=== PATIENT | female | born 1955 | race Caucasian/White ===

== ENCOUNTER 2019-02-03 10:11 | Inpatient (IN) | payer MEDICARE, OTHER ==
[~2019-02-03] VITALS: Ht 160 cm; Wt 75.0 kg
[2019-02-03] VITALS (16 sets, daily range): BP systolic 115–137; BP diastolic 53–100
[2019-02-03] MEDS ORDERED: normal saline 1000ML IV soln IVB ONE (10:20)
[2019-02-03] MEDS ORDERED: morphine 4 MG/ML inj SYRINge IV PRN ×4 (10:20→17:10)
[2019-02-03] MEDS ORDERED: ondansetron/PF 4mg/2ml inj IV ONE (10:20)
[2019-02-03 10:58] LABS: BASOPHILS # (AUTO) 0.1 X10'3 (0-0.2); BASOPHILS % (AUTO) 0.7 % (0-1); EOSINOPHILS % (AUTO) 0.3 % (0-6); HEMATOCRIT 36.9 % (35.0-45.0); HEMOGLOBIN 12.3 g/dl (12.0-16.0); LYMPHOCYTES # (AUTO) 2.3 X10'3 (1.1-4.8); LYMPHOCYTES % (AUTO) 18.5 % (21-51); MEAN CORPUSCULAR HEMOGLOBIN 28.2 PG (27.0-31.0); MEAN CORPUSCULAR HGB CONC 33.5 g/dL (33.0-36.5); MEAN CORPUSCULAR VOLUME 84.3 FL (78-98); MEAN PLATELET VOLUME 9.6 FL (7.4-10.4); MONOCYTES # (AUTO) 1.4 X10'3 (0-0.9); MONOCYTES % (AUTO) 10.9 % (2-12); NEUTROPHILS # (AUTO) 8.7 X10'3 (1.8-7.7); NEUTROPHILS % (AUTO) 69.6 % (42-75); PLATELET COUNT 263 X10'3 (140-440); RED BLOOD COUNT 4.38 X10'6 (4.20-5.60); RED CELL DISTRIBUTION WIDTH 12.5 % (11.5-14.5); WHITE BLOOD COUNT 12.5 X10'3 (4.5-11.0)
[2019-02-03 11:00] LABS: CLARITY,URINE SLIGHTLY CLOUDY (Clear); COLOR,URINE STRAW (Yellow); GLUCOSE, URINE NEGATIVE (Neg); KETONES,URINE 40 mg/dl (Neg); LEUKOCYTE ESTERASE ,URINE NEGATIVE (Neg); NITRITES, URINE NEGATIVE (Neg); OCCULT BLOOD,URINE NEGATIVE (Neg); PROTEIN,URINE NEGATIVE (Neg); UROBILINOGEN,URINE 0.2 E.U/dL (0.2-1.0)
[2019-02-03 11:05] LABS: UA COLLECTION TYPE VOIDED
[2019-02-03 11:12] LABS: ALANINE AMINOTRANSFERASE 15 U/L (12-78); ALBUMIN 3.4 G/DL (3.4-5.0); ALBUMIN/GLOBULIN RATIO 0.8 (1.1-1.5); ALKALINE PHOSPHATASE 86 IU/L (46-116); ANION GAP 12 (8-16); ASPARTATE AMINO TRANSFERASE 17 U/L (10-37); BILIRUBIN,TOTAL 0.4 MG/DL (0.1-1.0); BLOOD UREA NITROGEN 9 MG/DL (7-18); BUN/CREATININE RATIO 12.3 (6.6-38.0); CALCIUM 8.4 MG/DL (8.5-10.1); CHLORIDE 105 MMOL/L (99-107); CREATININE 0.73 MG/DL (0.40-0.90); GLUCOSE 103 MG/DL (70-104); POTASSIUM 3.5 MMOL/L (3.5-5.1); SODIUM 139 MMOL/L (135-145); TOTAL CARBON DIOXIDE 21.6 MMOL/L (24-32); TOTAL PROTEIN 7.7 G/DL (6.4-8.2); eGFR 80 ML/MIN
[2019-02-03 11:16] LABS: PARTIAL THROMBOPLASTIN TIME 29 SECONDS (22-32); PROTHROMBIN TIME 10.1 SECONDS (9.0-12.0)
[2019-02-03 11:20] LABS: SQUAMOUS EPITHELIAL CELL,UR MANY /LPF (FEW)
[2019-02-03 11:22] LABS: BACTERIA,URINE 2+ /HPF (Neg); MUCUS STRANDS NONE SEEN /LPF (Neg); RBC,URINE 0-2 /HPF (0-2); WBC,URINE 0-4 /HPF (0-4)
[2019-02-03] MEDS ORDERED: mag hydrox/Alum hydrox/simeth 30ml oral suspension PO PRN (12:00)
[2019-02-03] MEDS ORDERED: magnesium 4gm in 100ml NS 100 ML IV PRN (12:00)
[2019-02-03] MEDS ORDERED: potassium Cl 40MEQ/NS 500ml 500 ML IV PRN ×2 (12:00)
[2019-02-03] MEDS ORDERED: potassium Cl 20 mEq SR tablet PO PRN ×2 (12:00)
[2019-02-03] MEDS ORDERED: ondansetron/PF 4mg/2ml inj IV PRN ×2 (12:00→17:10)
[2019-02-03] MEDS ORDERED: magnesium 2GM in 50ml NS 50 ML IV PRN (12:00)
[2019-02-03] MEDS ORDERED: magnesium hydroxide 30ml (MOM) UD suspension PO PRN (12:00)
[2019-02-03] MEDS ORDERED: LOSA50TA64 PO (12:18)
[2019-02-03] MEDS ORDERED: METO-384 PO (12:18)
[2019-02-03] MEDS ORDERED: CHOL10002 PO (12:18)
[2019-02-03] MEDS ORDERED: EZET10TA14 PO (12:18)
[2019-02-03] MEDS ORDERED: VITA1TAB20 PO (12:18)
[2019-02-03] MEDS ORDERED: ROSU10TA2 PO (12:18)
[2019-02-03] MEDS ORDERED: ALBU18HF2 INH (12:18)
[2019-02-03] MEDS ORDERED: ESTR1.25 PO (12:18)
[2019-02-03] MEDS ORDERED: hydrALAZINE 20mg/ml inj. IV PRN ×2 (12:50→17:10)
[2019-02-03] MEDS ORDERED: ipratropium/albuterol 3ml nebule NEB PRN (13:05)
[2019-02-03] MEDS: morphine 2 MG/ML inj. syringe IV PRN ×3 (13:26→20:28)
--- NOTE | 2019-02-03 14:14 | NUR ---
Received report from DORIAN Denton. Awaiting patient.
--- NOTE | 2019-02-03 14:48 | NUR ---
Patient arrived to floor. VSS. c/o pain. paged MD for orders.
[2019-02-03] MEDS ORDERED: morphine 2 MG/ML inj. syringe IV PRN (15:05)
[2019-02-03] MEDS ORDERED: BUPIVAcaine/PF 2.5mg/ml (0.25%) 10ml vial ONE (16:43)
--- NOTE | 2019-02-03 16:57 | NUR ---
Report called to Henny customs agent.
[2019-02-03] MEDS ORDERED: ringers solution, lacted 1,000 ML IV SCH (17:08)
[2019-02-03] MEDS ORDERED: labetalol 20mg/4ml (5mg/ml) syringe IV PRN (17:10)
[2019-02-03] MEDS ORDERED: fentaNYL/PF 50MCG/1 ML 2ML syringe IV PRN ×2 (17:10)
[2019-02-03] MEDS ORDERED: sevoflurane 250ml liquid IH ONE (17:43)
[2019-02-03] MEDS ORDERED: neostigmine methylsulfate 1 MG/ML 10ml vial ONE (17:43)
[2019-02-03] MEDS ORDERED: propofol inj 20 ML IV ONE (17:45)
[2019-02-03] MEDS ORDERED: LIDOcaine 2% (20mg/ml) 5ml vial ONE (17:45)
[2019-02-03] MEDS ORDERED: morphine 10mg/ml inj. ONE (17:45)
[2019-02-03] MEDS ORDERED: midazolam 2 mg/2 ml injection ONE (17:45)
[2019-02-03] MEDS ORDERED: ondansetron/PF 4mg/2ml inj ONE (17:46)
[2019-02-03] MEDS ORDERED: glycopyrrolate 0.2mg/ml inj ONE (17:46)
[2019-02-03] MEDS ORDERED: dexamethasone sod phosphate 4mg/ml inj. ONE (17:46)
[2019-02-03] MEDS ORDERED: rocuronium 10mg/ml inj IV ONE (17:47)
[2019-02-03] MEDS ORDERED: labetalol 20mg/4ml (5mg/ml) syringe IV ONE (17:55)
[2019-02-03] MEDS ORDERED: cefotetan 2gm/isosm dext IVPB 50 ML IV ONE (18:10)
--- NOTE | 2019-02-03 18:32 | NUR ---
Problems reprioritized. Patient report given, questions answered & plan of care reviewed with DORIAN Swanson.
--- NOTE | 2019-02-03 18:50 | NUR ---
Received from OR via bed, accompanied by Anesthesiologist. Report received. Initial physical assessment done and recorded.
--- NOTE | 2019-02-03 20:00 | NUR ---
Discharge criteria met, report to receiving floor. Transferred to room in stable condition.
--- NOTE | 2019-02-03 20:20 | NUR ---
Received report from PACU. PT arrived on the unit at 2019 with VSS. LR running at 100 ml/hr. Pt sleepy from anesthesia. Abdomen checked, [address], CDI. Pt shows no signs of distress, will continue to monitor.
[2019-02-04 00:30] VITALS: BP 119/52
[2019-02-04 05:42] LABS: BASOPHILS % (AUTO) 0.1 % (0-1); EOSINOPHILS % (AUTO) 0 % (0-6); HEMATOCRIT 32.2 % (35.0-45.0); LYMPHOCYTES # (AUTO) 0.8 X10'3 (1.1-4.8); LYMPHOCYTES % (AUTO) 5.8 % (21-51); MEAN CORPUSCULAR HEMOGLOBIN 28.6 PG (27.0-31.0); MEAN CORPUSCULAR HGB CONC 34.1 g/dL (33.0-36.5); MEAN CORPUSCULAR VOLUME 84.1 FL (78-98); MEAN PLATELET VOLUME 9.5 FL (7.4-10.4); MONOCYTES # (AUTO) 1.5 X10'3 (0-0.9); MONOCYTES % (AUTO) 11.3 % (2-12); NEUTROPHILS # (AUTO) 11.4 X10'3 (1.8-7.7); NEUTROPHILS % (AUTO) 82.8 % (42-75); PLATELET COUNT 218 X10'3 (140-440); RED BLOOD COUNT 3.83 X10'6 (4.20-5.60); RED CELL DISTRIBUTION WIDTH 12.9 % (11.5-14.5); WHITE BLOOD COUNT 13.7 X10'3 (4.5-11.0)
[2019-02-04 06:04] LABS: ALANINE AMINOTRANSFERASE 36 U/L (12-78); ALBUMIN 2.6 G/DL (3.4-5.0); ALBUMIN/GLOBULIN RATIO 0.7 (1.1-1.5); ALKALINE PHOSPHATASE 66 IU/L (46-116); ANION GAP 9 (8-16); ASPARTATE AMINO TRANSFERASE 41 U/L (10-37); BILIRUBIN,TOTAL 0.4 MG/DL (0.1-1.0); BLOOD UREA NITROGEN 10 MG/DL (7-18); BUN/CREATININE RATIO 11.6 (6.6-38.0); CALCIUM 7.8 MG/DL (8.5-10.1); CHLORIDE 104 MMOL/L (99-107); CHOL/HDL RATIO 1.6 (0.00-4.99); CHOLESTEROL 128 MG/DL (0-200); CREATININE 0.86 MG/DL (0.40-0.90); GLUCOSE 171 MG/DL (70-104); HDL CHOLESTEROL 81 MG/DL (35-60); LDL CHOLESTEROL 38 MG/DL (50-100); MAGNESIUM 1.6 MG/DL (1.5-2.4); POTASSIUM 3.7 MMOL/L (3.5-5.1); SODIUM 136 MMOL/L (135-145); TOTAL CARBON DIOXIDE 22.8 MMOL/L (24-32); TOTAL PROTEIN 6.5 G/DL (6.4-8.2); TRIGLYCERIDES 53 MG/DL (20-135); eGFR 66 ML/MIN
--- NOTE | 2019-02-04 06:06 | NUR ---
Problems reprioritized. Patient report given, questions answered & plan of care reviewed with Irene ALARCON.
[2019-02-04 07:35] VITALS: BP 138/59
[2019-02-04] MEDS ORDERED: CefTRIAXone/D5W-Rocephin 1gm 50 ML IV SCH (08:00)
[2019-02-04] MEDS: K and/or MAG REPLACEMENT MC SCH (08:00)
[2019-02-04] MEDS: enoxaparin 40mg/0.4ml syringe SQ SCH (09:18)
[2019-02-04 11:44] VITALS: BP 129/55
[2019-02-04] MEDS: HYDROmorphone 1 mg/ml syringe IV PRN ×4 (12:02→21:25)
[2019-02-04] MEDS ORDERED: cefepime 2gm inj IV SCH (16:00)
[2019-02-04] MEDS: cefepime 2g/NS 100ml ADVANTAGE 100 ML IV SCH (16:31)
--- NOTE | 2019-02-04 18:48 | NUR ---
Patient in room [facility]. I have received report from Irene ALARCON and had the opportunity to ask questions and assume patient care. Pt sitting up on the edge of the bed working on her clears dinner tray with family at bedside visiting. Pt shows no signs of distress, will continue to monitor.
--- NOTE | 2019-02-04 18:51 | NUR ---
Problems reprioritized. Patient report given, questions answered & plan of care reviewed with DORIAN Swanson.
[2019-02-04 20:00] VITALS: BP 132/60
[2019-02-04] MEDS: lactobacillus rhamnosus 10,000 MMU CELLS/CAPSULE PO SCH (21:15)
[2019-02-05] VITALS: BP 129/77
[2019-02-05] MEDS: cefepime 2g/NS 100ml ADVANTAGE 100 ML IV SCH ×3 (00:07→16:44)
[2019-02-05] MEDS: HYDROmorphone 1 mg/ml syringe IV PRN ×5 (00:18→20:12)
[2019-02-05 05:09] LABS: BASOPHILS % (AUTO) 0.2 % (0-1); EOSINOPHILS % (AUTO) 0.3 % (0-6); HEMATOCRIT 27.6 % (35.0-45.0); HEMOGLOBIN 9.3 g/dl (12.0-16.0); LYMPHOCYTES # (AUTO) 1.1 X10'3 (1.1-4.8); LYMPHOCYTES % (AUTO) 9.8 % (21-51); MEAN CORPUSCULAR HEMOGLOBIN 28.4 PG (27.0-31.0); MEAN CORPUSCULAR HGB CONC 33.6 g/dL (33.0-36.5); MEAN CORPUSCULAR VOLUME 84.4 FL (78-98); MEAN PLATELET VOLUME 9.4 FL (7.4-10.4); MONOCYTES # (AUTO) 1.5 X10'3 (0-0.9); MONOCYTES % (AUTO) 13.2 % (2-12); NEUTROPHILS # (AUTO) 8.4 X10'3 (1.8-7.7); NEUTROPHILS % (AUTO) 76.5 % (42-75); PLATELET COUNT 190 X10'3 (140-440); RED BLOOD COUNT 3.27 X10'6 (4.20-5.60); RED CELL DISTRIBUTION WIDTH 12.8 % (11.5-14.5)
[2019-02-05 05:32] LABS: ALANINE AMINOTRANSFERASE 32 U/L (12-78); ALBUMIN 2.4 G/DL (3.4-5.0); ALBUMIN/GLOBULIN RATIO 0.6 (1.1-1.5); ALKALINE PHOSPHATASE 67 IU/L (46-116); ANION GAP 8 (8-16); ASPARTATE AMINO TRANSFERASE 30 U/L (10-37); BILIRUBIN,TOTAL 0.4 MG/DL (0.1-1.0); BLOOD UREA NITROGEN 10 MG/DL (7-18); BUN/CREATININE RATIO 11.6 (6.6-38.0); CHLORIDE 104 MMOL/L (99-107); CREATININE 0.86 MG/DL (0.40-0.90); GLUCOSE 123 MG/DL (70-104); MAGNESIUM 1.9 MG/DL (1.5-2.4); POTASSIUM 3.4 MMOL/L (3.5-5.1); SODIUM 138 MMOL/L (135-145); TOTAL PROTEIN 6.3 G/DL (6.4-8.2); eGFR 66 ML/MIN
--- NOTE | 2019-02-05 06:44 | NUR ---
Problems reprioritized. Patient report given, questions answered & plan of care reviewed with Bob ALARCON.
[2019-02-05 07:00] VITALS: BP 146/68
--- NOTE | 2019-02-05 07:05 | NUR ---
Patient in room [facility]. I have received report from Kiki ALARCON and had the opportunity to ask questions and assume patient care.
[2019-02-05] MEDS: K and/or MAG REPLACEMENT MC SCH (08:00)
[2019-02-05] MEDS: metoprolol succinate 25mg (24-HOUR) SR. Tablet PO SCH (08:25)
[2019-02-05] MEDS: lactobacillus rhamnosus 10,000 MMU CELLS/CAPSULE PO SCH ×2 (08:26→19:44)
[2019-02-05] MEDS: enoxaparin 40mg/0.4ml syringe SQ SCH (08:26)
[2019-02-05] MEDS: vitamin D (cholecalciferol) 1,000 unit tablet PO SCH (08:26)
[2019-02-05] MEDS: losartan 50mg tablet PO SCH (08:26)
--- NOTE | 2019-02-05 08:44 | NUR ---
Dr. Vizcarra notified about patient's temp of 101F this am[address] Dr. Vizcarra said he will put some orders. Charge nurse Racquel turner
[2019-02-05] MEDS ORDERED: acetaminophen 325mg tablet PO PRN (09:05)
[2019-02-05] MEDS: diatr meglu/diatrizoate 30ml oral sol.-(3 dose) bottle PO SCH ×3 (09:18→15:33)
[2019-02-05 11:00] VITALS: BP 143/71
[2019-02-05] MEDS ORDERED: iohexol 300mg/ml 100ml inj. ONE (15:33)
[2019-02-05 16:59] LABS: CLARITY,URINE SLIGHTLY CLOUDY (Clear); COLOR,URINE YELLOW (Yellow); GLUCOSE, URINE NEGATIVE (Neg); KETONES,URINE 15 mg/dl (Neg); LEUKOCYTE ESTERASE ,URINE NEGATIVE (Neg); NITRITES, URINE NEGATIVE (Neg); OCCULT BLOOD,URINE TRACE-INTACT (Neg); PROTEIN,URINE 30 mg/dl (Neg); UROBILINOGEN,URINE 0.2 E.U/dL (0.2-1.0)
[2019-02-05 17:25] LABS: UA COLLECTION TYPE CLN CATCH MIDSTREAM
[2019-02-05 17:54] LABS: MUCUS STRANDS MODERATE /LPF (Neg); SQUAMOUS EPITHELIAL CELL,UR MODERATE /LPF (FEW)
[2019-02-05 17:55] LABS: BACTERIA,URINE FEW /HPF (Neg); RBC,URINE 0-2 /HPF (0-2); WBC,URINE 0-4 /HPF (0-4)
--- NOTE | 2019-02-05 18:30 | NUR ---
Patient in room [facility]. I have received report from DORIAN Rojas and had the opportunity to ask questions and assume patient care.
--- NOTE | 2019-02-05 19:00 | NUR ---
Problems reprioritized. Patient report given, questions answered & plan of care reviewed with Pat RN
[2019-02-05 19:30] VITALS: BP 139/56
[2019-02-05] MEDS ORDERED: diatr meglu/diatrizoate 30ml oral sol.-(3 dose) bottle PO SCH (21:00)
[2019-02-06] VITALS: BP 139/63
[2019-02-06] MEDS: cefepime 2g/NS 100ml ADVANTAGE 100 ML IV SCH ×3 (00:47→16:19)
[2019-02-06] MEDS: HYDROmorphone 1 mg/ml syringe IV PRN ×4 (00:52→19:57)
[2019-02-06 05:43] LABS: BASOPHILS % (AUTO) 0.6 % (0-1); EOSINOPHILS # (AUTO) 0.2 X10'3 (0-0.9); EOSINOPHILS % (AUTO) 2.4 % (0-6); HEMATOCRIT 28.6 % (35.0-45.0); HEMOGLOBIN 9.6 g/dl (12.0-16.0); LYMPHOCYTES # (AUTO) 1.2 X10'3 (1.1-4.8); LYMPHOCYTES % (AUTO) 15.4 % (21-51); MEAN CORPUSCULAR HEMOGLOBIN 28.2 PG (27.0-31.0); MEAN CORPUSCULAR HGB CONC 33.4 g/dL (33.0-36.5); MEAN CORPUSCULAR VOLUME 84.5 FL (78-98); MEAN PLATELET VOLUME 9.4 FL (7.4-10.4); MONOCYTES # (AUTO) 1.1 X10'3 (0-0.9); MONOCYTES % (AUTO) 14.3 % (2-12); NEUTROPHILS # (AUTO) 5.1 X10'3 (1.8-7.7); NEUTROPHILS % (AUTO) 67.3 % (42-75); PLATELET COUNT 227 X10'3 (140-440); RED BLOOD COUNT 3.38 X10'6 (4.20-5.60); RED CELL DISTRIBUTION WIDTH 12.8 % (11.5-14.5); WHITE BLOOD COUNT 7.6 X10'3 (4.5-11.0)
[2019-02-06 06:01] LABS: ALANINE AMINOTRANSFERASE 37 U/L (12-78); ALBUMIN 2.6 G/DL (3.4-5.0); ALBUMIN/GLOBULIN RATIO 0.6 (1.1-1.5); ALKALINE PHOSPHATASE 117 IU/L (46-116); ANION GAP 8 (8-16); ASPARTATE AMINO TRANSFERASE 35 U/L (10-37); BILIRUBIN,TOTAL 0.5 MG/DL (0.1-1.0); BLOOD UREA NITROGEN 10 MG/DL (7-18); BUN/CREATININE RATIO 13.2 (6.6-38.0); CALCIUM 8.5 MG/DL (8.5-10.1); CHLORIDE 103 MMOL/L (99-107); CREATININE 0.76 MG/DL (0.40-0.90); GLUCOSE 93 MG/DL (70-104); MAGNESIUM 2.1 MG/DL (1.5-2.4); POTASSIUM 3.9 MMOL/L (3.5-5.1); SODIUM 138 MMOL/L (135-145); TOTAL CARBON DIOXIDE 27.4 MMOL/L (24-32); eGFR 76 ML/MIN
--- NOTE | 2019-02-06 06:45 | NUR ---
Patient in room [facility]. I have received report from Pat RN and had the opportunity to ask questions and assume patient care.
[2019-02-06 07:00] VITALS: BP 146/63
[2019-02-06] MEDS: K and/or MAG REPLACEMENT MC SCH (08:00)
[2019-02-06] MEDS: vitamin D (cholecalciferol) 1,000 unit tablet PO SCH (08:18)
[2019-02-06] MEDS: losartan 50mg tablet PO SCH (08:18)
[2019-02-06] MEDS: metoprolol succinate 25mg (24-HOUR) SR. Tablet PO SCH (08:18)
[2019-02-06] MEDS: enoxaparin 40mg/0.4ml syringe SQ SCH (08:19)
[2019-02-06] MEDS: lactobacillus rhamnosus 10,000 MMU CELLS/CAPSULE PO SCH ×2 (08:19→20:02)
[2019-02-06 11:00] VITALS: BP 155/47
[2019-02-06 18:00] VITALS: BP 143/52
--- NOTE | 2019-02-06 18:15 | NUR ---
Problems reprioritized. Patient report given, questions answered & plan of care reviewed with Ugo ALARCON.
--- NOTE | 2019-02-06 18:16 | NUR ---
Patient in room [facility]. I have received report from DORIAN Rojas and had the opportunity to ask questions and assume patient care.
[2019-02-07] VITALS: BP 159/77
[2019-02-07] MEDS: cefepime 2g/NS 100ml ADVANTAGE 100 ML IV SCH ×2 (00:23→07:39)
[2019-02-07] MEDS: HYDROmorphone 1 mg/ml syringe IV PRN ×2 (00:23→07:46)
[2019-02-07 05:23] LABS: BASOPHILS % (AUTO) 0.5 % (0-1); EOSINOPHILS # (AUTO) 0.3 X10'3 (0-0.9); EOSINOPHILS % (AUTO) 4.2 % (0-6); HEMATOCRIT 29.2 % (35.0-45.0); HEMOGLOBIN 9.9 g/dl (12.0-16.0); LYMPHOCYTES # (AUTO) 1.3 X10'3 (1.1-4.8); LYMPHOCYTES % (AUTO) 20.1 % (21-51); MEAN CORPUSCULAR HEMOGLOBIN 28.4 PG (27.0-31.0); MEAN CORPUSCULAR HGB CONC 34.1 g/dL (33.0-36.5); MEAN CORPUSCULAR VOLUME 83.2 FL (78-98); MONOCYTES # (AUTO) 1.2 X10'3 (0-0.9); MONOCYTES % (AUTO) 17.7 % (2-12); NEUTROPHILS # (AUTO) 3.8 X10'3 (1.8-7.7); NEUTROPHILS % (AUTO) 57.5 % (42-75); PLATELET COUNT 294 X10'3 (140-440); RED CELL DISTRIBUTION WIDTH 12.7 % (11.5-14.5); WHITE BLOOD COUNT 6.6 X10'3 (4.5-11.0)
[2019-02-07 05:31] LABS: ALANINE AMINOTRANSFERASE 39 U/L (12-78); ALBUMIN 2.6 G/DL (3.4-5.0); ALBUMIN/GLOBULIN RATIO 0.6 (1.1-1.5); ALKALINE PHOSPHATASE 141 IU/L (46-116); ANION GAP 5 (8-16); ASPARTATE AMINO TRANSFERASE 32 U/L (10-37); BILIRUBIN,TOTAL 0.4 MG/DL (0.1-1.0); BLOOD UREA NITROGEN 10 MG/DL (7-18); BUN/CREATININE RATIO 14.5 (6.6-38.0); CALCIUM 8.4 MG/DL (8.5-10.1); CHLORIDE 103 MMOL/L (99-107); CREATININE 0.69 MG/DL (0.40-0.90); GLUCOSE 92 MG/DL (70-104); MAGNESIUM 1.8 MG/DL (1.5-2.4); POTASSIUM 3.6 MMOL/L (3.5-5.1); SODIUM 138 MMOL/L (135-145); TOTAL CARBON DIOXIDE 29.6 MMOL/L (24-32); TOTAL PROTEIN 7.1 G/DL (6.4-8.2); eGFR 85 ML/MIN
--- NOTE | 2019-02-07 06:10 | NUR ---
Patient in room [facility]. I have received report from Ugo ALARCON and had the opportunity to ask questions and assume patient care.
--- NOTE | 2019-02-07 06:50 | NUR ---
Problems reprioritized. Patient report given, questions answered & plan of care reviewed with DORIAN Galvez.
--- NOTE | 2019-02-07 06:51 | NUR ---
Patient in room [facility]. I have received report from Ugo ALARCON and had the opportunity to ask questions and assume patient care.
[2019-02-07] MEDS: lactobacillus rhamnosus 10,000 MMU CELLS/CAPSULE PO SCH (07:28)
[2019-02-07] MEDS: metoprolol succinate 25mg (24-HOUR) SR. Tablet PO SCH (07:28)
[2019-02-07] MEDS: vitamin D (cholecalciferol) 1,000 unit tablet PO SCH (07:28)
[2019-02-07] MEDS: losartan 50mg tablet PO SCH (07:28)
[2019-02-07] MEDS: enoxaparin 40mg/0.4ml syringe SQ SCH (07:29)
[2019-02-07 07:33] VITALS: BP 151/68
[2019-02-07] MEDS ORDERED: CRESTOR 10 MG PO SCH (08:00)
[2019-02-07] MEDS ORDERED: ezetimibe 10mg tablet PO SCH (08:00)
[2019-02-07] MEDS ORDERED: non-formulary drug (Rosuvastatin Calcium* (Crestor*) 1 TAB) PO SCH (08:00)
[2019-02-07] MEDS: K and/or MAG REPLACEMENT MC SCH (08:00)
--- NOTE | 2019-02-07 09:44 | NUR ---
Student documentation: I have reviewed and agree with all interventions, assessments performed and documented by Kim ADAMSON from [facility]. Student Medication Administration: For this medication-pass time frame from 0600 to 1800, all medication were reviewed, dispensed, administered and documented per hospital policy by Kim ADAMSON.
[2019-02-07] MEDS ORDERED: HYDROcodone/acetaminophen 5mg/325mg tablet PO PRN (11:35)
[2019-02-07 12:00] VITALS: BP 146/62
[2019-02-07] MEDS ORDERED: HYDR-4353 PO (12:26)
[2019-02-07] MEDS ORDERED: CIPR-230 PO (12:26)
--- NOTE | 2019-02-07 15:06 | NUR ---
Patient discharged home with daughter to [place]. Medications for home delivered to bedside by Ute. A&O, VVS. All education provided to patient, encouraged pt to drink plenty of fluids with pain medications and Abx. No meds in pharmacy. Not DM, no teaching needed.
== END 2019-02-07 15:02 | disposition home or self-care (01) | DRG 418 ==
LOC: ER 10:13 → ED HOLD 11:58 → SUR 3N 14:30 → PAS IN 17:12 → SUR 3N 19:57
PROVIDERS: ADMIT Family Medicine; ATTEND Family Medicine
PROC: 0DN94ZZ Release Duodenum, Percutaneous Endoscopic Approach (ICD-10-PCS; 2019-02-03)
PROC: 0DNU4ZZ Release Omentum, Percutaneous Endoscopic Approach (ICD-10-PCS; 2019-02-03)
PROC: 0FT44ZZ Resection of Gallbladder, Percutaneous Endoscopic Approach (ICD-10-PCS; principal; 2019-02-03 17:43)
PROC: BW211ZZ Computerized Tomography (CT Scan) of Abdomen and Pelvis using Low Osmolar Contrast (ICD-10-PCS; 2019-02-05)
DX: K80.00 Calculus of gallbladder with acute cholecystitis without obstruction (principal); I42.9 Cardiomyopathy, unspecified; I10 Essential (primary) hypertension; J44.9 Chronic obstructive pulmonary disease, unspecified; K82.A1 Gangrene of gallbladder in cholecystitis; E78.00 Pure hypercholesterolemia, unspecified; E78.49 Other hyperlipidemia; K66.0 Peritoneal adhesions (postprocedural) (postinfection); K82.8 Other specified diseases of gallbladder; K57.90 Diverticulosis of intestine, part unspecified, without perforation or abscess without bleeding; K80.20 Calculus of gallbladder without cholecystitis without obstruction; Z80.43 Family history of malignant neoplasm of testis; Z88.2 Allergy status to sulfonamides; Z88.1 Allergy status to other antibiotic agents; Z88.8 Allergy status to other drugs, medicaments and biological substances; Z88.6 Allergy status to analgesic agent; Z80.51 Family history of malignant neoplasm of kidney; Z82.49 Family history of ischemic heart disease and other diseases of the circulatory system; Z83.3 Family history of diabetes mellitus; Z87.891 Personal history of nicotine dependence; Z90.711 Acquired absence of uterus with remaining cervical stump; Z90.721 Acquired absence of ovaries, unilateral; Z98.51 Tubal ligation status
CPT/HCPCS: 36415; 74177; 80053; 80061; 81001; 83605; 83735; 85025; 85610; 85730; 87040; 87070; 88304; 94760; 96374; 96375; 99285; A7000; G0378; J0692; J0696; J1100; J1170; J1650; J2001; J2250; J2270; J2405; J2704; J2710; J3490; J7030; J7120; Q9963; Q9967